=== PATIENT | female | born 2000 ===

== ENCOUNTER 2024-02-20 00:12 | Emergency (ER) | payer OTHER ==
[~2024-02-20] VITALS: Ht 160 cm; Wt 58.6 kg
[2024-02-20 00:16] VITALS: TEMP 98.2
[2024-02-20] MEDS ORDERED: Mag/Al Hydrox/Simeth Susp 30 ML CUP PO ONE (00:45)
[2024-02-20] MEDS ORDERED: NS 1,000 ML IV ONE (00:45)
[2024-02-20] MEDS ORDERED: Ketorolac 15 MG/ML VIAL IV ONE (00:45)
[2024-02-20] MEDS ORDERED: Pantoprazole 40 MG in NS 10 ML IV ONE (00:45)
[2024-02-20] MEDS ORDERED: Ondansetron 4 MG/2 ML VIAL IV ONE (00:45)
[2024-02-20 00:54] LABS: BASO % 0.4 % (0.0-2.0); EOS # 0.2 K/mm3 (0.0-0.7); EOS % 2.1 % (0.0-4.0); GRAN # 4.4 K/mm3 (1.4-6.5); GRAN % 43.4 % (42.2-75.2); HEMOGLOBIN 12.2 g/dl (12.5-16.0); LYMPH # 4.4 K/mm3 (1.2-3.4); LYMPH % 43.6 % (20.0-51.0); MEAN CELL VOLUME 84 fl (80.0-100.0); MEAN CORPUSCULAR HEMOGLOBIN 27 pg (27-31); MEAN CORPUSCULAR HGB CONC 32 g/dl (33.0-37.0); MEAN PLATELET VOLUME 9.5 fl (7.4-10.4); MONO % 10.2 % (1.7-9.3); PLATELET COUNT 299 K/mm3 (130-400); RED BLOOD COUNT 4.54 M/mm3 (4.10-5.30); REDCELL DISTRIBUTION WIDTH-CV 14.3 % (11.5-14.5)
[2024-02-20 01:11] LABS: ALBUMIN 4.1 g/dL (3.5-5.0); BILIRUBIN,TOTAL 0.4 mg/dL (0.2-1.2); C-REACTIVE PROTEIN 0.07 mg/dL (0.00-0.50); CALCIUM 9.8 mg/dL (8.4-10.2); CREATININE, serum 0.84 mg/dL (0.57-1.11); POTASSIUM 4.3 mEq/L (3.5-4.5); TOTAL PROTEIN 7.2 g/dl (6.2-8.1)
[2024-02-20] MEDS ORDERED: PRILOTC PO (02:01)
[2024-02-20] MEDS ORDERED: CARAFATE 1GM1 G PO (02:01)
[2024-02-20 02:15] VITALS: BP 97/66; PULSE 89
== END 2024-02-20 02:15 | disposition home or self-care (01) ==
LOC: COL.ER 00:12
PROVIDERS: Nurse Practitioner
DX: R10.13 Epigastric pain (principal); R11.0 Nausea
CPT/HCPCS: C9113; J1885; J2405; J7030

== ENCOUNTER 2024-03-10 13:56 | Emergency (ER) | payer OTHER ==
[~2024-03-10] VITALS: Ht 160 cm; Wt 59.1 kg
[~2024-03-10 13:56] MED LIST: CARAFATE 1GM1 G PO; PRILOTC PO
[2024-03-10 13:57] VITALS: BP 100/66; PULSE 76; TEMP 98.3
[2024-03-10] MEDS ORDERED: Pantoprazole 40 MG in NS 10 ML IV ONE (14:30)
[2024-03-10] MEDS ORDERED: Ondansetron 4 MG/2 ML VIAL IV ONE (14:30)
[2024-03-10] MEDS ORDERED: LR 1,000 ML IV ONE (14:30)
[2024-03-10 15:06] LABS: BASO # 0.1 K/mm3 (0.0-0.2); BASO % 0.8 % (0.0-2.0); EOS # 0.2 K/mm3 (0.0-0.7); EOS % 2.1 % (0.0-4.0); GRAN # 3.4 K/mm3 (1.4-6.5); GRAN % 44.8 % (42.2-75.2); HEMATOCRIT 39.2 % (37.0-47.0); HEMOGLOBIN 12.5 g/dl (12.5-16.0); LYMPH # 3.3 K/mm3 (1.2-3.4); LYMPH % 43.4 % (20.0-51.0); MEAN CELL VOLUME 85 fl (80.0-100.0); MEAN CORPUSCULAR HEMOGLOBIN 27 pg (27-31); MEAN CORPUSCULAR HGB CONC 32 g/dl (33.0-37.0); MEAN PLATELET VOLUME 9.9 fl (7.4-10.4); MONO # 0.7 K/mm3 (0.1-0.6); MONO % 8.6 % (1.7-9.3); PLATELET COUNT 327 K/mm3 (130-400); RED BLOOD COUNT 4.63 M/mm3 (4.10-5.30); REDCELL DISTRIBUTION WIDTH-CV 14.6 % (11.5-14.5)
[2024-03-10 15:08] LABS: URINE APPEARANCE CLEAR (CLEAR/HAZY); URINE BLOOD NEGATIVE (NEGATIVE); URINE COLOR YELLOW (YELLOW); URINE GLUCOSE NEGATIVE (NEGATIVE); URINE KETONE NEGATIVE (NEGATIVE); URINE NITRATE NEGATIVE (NEGATIVE); URINE PROTEIN(semi-quant) NEGATIVE (NEGATIVE); URINE UROBILINOGEN 0.2 E.U/dL (0.2-1.0)
[2024-03-10 15:17] LABS: COLLECTION METHOD CLEAN CATCH
[2024-03-10 15:26] LABS: ALANINE AMINOTRANSFERASE 35 U/L (0-55); ALBUMIN 3.9 g/dL (3.5-5.0); ALKALINE PHOSPHATASE 85 U/L (40-150); ANION GAP 9 mmol/L (7-16); AST,SGOT 33 U/L (5-34); BLOOD UREA NITROGEN 11 mg/dL (7-19); C-REACTIVE PROTEIN 0.17 mg/dL (0.00-0.50); CALCIUM 10.1 mg/dL (8.4-10.2); CHLORIDE 106 mEq/L (98-107); CREATININE, serum 0.74 mg/dL (0.57-1.11); GLUCOSE 87 mg/dL (70-99); LIPASE 10 U/L (8-78); POTASSIUM 3.6 mEq/L (3.5-4.5); SODIUM 138 mEq/L (136-145); TOTAL PROTEIN 7.4 g/dl (6.2-8.1)
[2024-03-10 15:40] LABS: BILIRUBIN,TOTAL < 0.5 mg/dL (0.2-1.2)
== END 2024-03-10 16:15 | disposition home or self-care (01) ==
LOC: COL.ER 13:56
PROVIDERS: Family Medicine
DX: K80.70 Calculus of gallbladder and bile duct without cholecystitis without obstruction (principal)
CPT/HCPCS: C9113; J2405; J7120

== ENCOUNTER 2024-05-16 23:40 | Emergency (ER) | payer OTHER ==
[~2024-05-16] VITALS: Ht 160 cm; Wt 59.1 kg
[2024-05-16] MEDS ORDERED: Ibuprofen 600 MG TAB PO ONE (23:45)
[2024-05-16 23:50] VITALS: BP 135/96; TEMP 97.9
[2024-05-17 01:19] VITALS: PULSE 72
== END 2024-05-17 01:19 | disposition home or self-care (01) ==
LOC: COL.ER 23:40
DX: J03.90 Acute tonsillitis, unspecified (principal)

== ENCOUNTER 2024-07-13 15:38 | Emergency (ER) | payer OTHER ==
[~2024-07-13] VITALS: Ht 160 cm; Wt 58.6 kg
[2024-07-13 15:40] VITALS: TEMP 97.6
[2024-07-13] MEDS ORDERED: NS 1,000 ML IV ONE (16:00)
[2024-07-13 16:14] LABS: COLLECTION METHOD CLEAN CATCH
[2024-07-13 16:22] LABS: URINE APPEARANCE CLEAR (CLEAR/HAZY); URINE BLOOD NEGATIVE (NEGATIVE); URINE COLOR YELLOW (YELLOW); URINE GLUCOSE NEGATIVE (NEGATIVE); URINE KETONE NEGATIVE (NEGATIVE); URINE NITRATE NEGATIVE (NEGATIVE); URINE PROTEIN(semi-quant) NEGATIVE (NEGATIVE); URINE UROBILINOGEN 0.2 E.U/dL (0.2-1.0)
[2024-07-13 16:28] LABS: BASO % 0.4 % (0.0-2.0); EOS # 0.1 K/mm3 (0.0-0.7); EOS % 0.6 % (0.0-4.0); GRAN # 6.1 K/mm3 (1.4-6.5); GRAN % 63.3 % (42.2-75.2); HEMATOCRIT 39.9 % (37.0-47.0); LYMPH # 2.7 K/mm3 (1.2-3.4); LYMPH % 27.8 % (20.0-51.0); MEAN CELL VOLUME 82 fl (80.0-100.0); MEAN CORPUSCULAR HEMOGLOBIN 27 pg (27-31); MEAN CORPUSCULAR HGB CONC 33 g/dl (33.0-37.0); MEAN PLATELET VOLUME 9.6 fl (7.4-10.4); MONO # 0.7 K/mm3 (0.1-0.6); MONO % 7.6 % (1.7-9.3); PLATELET COUNT 337 K/mm3 (130-400); RED BLOOD COUNT 4.88 M/mm3 (4.10-5.30); REDCELL DISTRIBUTION WIDTH-CV 13.4 % (11.5-14.5)
[2024-07-13 16:42] LABS: ALANINE AMINOTRANSFERASE 102 U/L (0-55); ALBUMIN 3.8 g/dL (3.5-5.0); ALKALINE PHOSPHATASE 77 U/L (40-150); ANION GAP 13 mmol/L (7-16); AST,SGOT 53 U/L (5-34); BILIRUBIN,TOTAL 0.4 mg/dL (0.2-1.2); BLOOD UREA NITROGEN 8 mg/dL (7-19); CHLORIDE 103 mEq/L (98-107); CREATININE, serum 0.71 mg/dL (0.57-1.11); GLUCOSE 99 mg/dL (70-99); MAGNESIUM 1.7 mg/dL (1.6-2.6); POTASSIUM 3.4 mEq/L (3.5-4.5); SODIUM 137 mEq/L (136-145); TOTAL PROTEIN 7.8 g/dl (6.2-8.1)
[2024-07-13 17:10] LABS: LIPASE < 7 U/L (8-78); TROPONIN-I < 0.010 ng/mL (0.00-0.033)
[2024-07-13 17:50] VITALS: BP 116/82; PULSE 75
== END 2024-07-13 17:50 | disposition home or self-care (01) ==
LOC: COL.ER 15:38
PROVIDERS: Emergency Medicine
DX: O99.891 Other specified diseases and conditions complicating pregnancy (principal); E86.0 Dehydration; R79.89 Other specified abnormal findings of blood chemistry; Z3A.08 8 weeks gestation of pregnancy
CPT/HCPCS: J7030